=== PATIENT | male | born 1950 | race Caucasian/White ===

== ENCOUNTER 2020-04-21 09:45 | Inpatient (IN) ==
[2020-04-21] MEDS ORDERED: ALBUTEROL NEB SOLN 5 MG/ML 20 ML/BOTTLE CONT NEB STA (10:42)
[2020-04-21] MEDS ORDERED: methylPREDNISolone SOD SUC 125 MG/2 ML VIAL IV STA (10:42)
[2020-04-21 10:54] LABS: Alanine Aminotransferase 15 U/L (16-61); Albumin 2.1 G/DL (3.4-5.0); Alkaline Phosphatase 145 U/L (45-117); Aspartate Amino Transferase 21 U/L (0-37); Bilirubin,Total < 0.39 MG/DL (0.2-1.0); Blood Urea Nitrogen 26 MG/DL (7-18); Calcium 8.4 MG/DL (8.5-10.1); Estimated Glom Filtration Rate 62 ML/MIN; Glucose 200 MG/DL (74-106); Osmolality,Calculated 278.2 MOS/KG (273-304); Total Protein 8.2 G/DL (6.4-8.3)
[2020-04-21 11:32] LABS: Ferritin 161.4 ng/ml (26-388)
[2020-04-21 11:48] LABS: Basophils % 0.1 % (0.0-0.8); Eosinophils % 0.1 % (0.00-10.9); Hematocrit 32.9 VOL% (42.0-52.0); Immature Granulocytes % 0.5 %; Immature Granulocytes Absolute 0.08 #; Lymphocytes # 0.9 10*3/uL (1.4-4.0); Lymphocytes % 5.4 % (21.2-54.2); Mean Corpuscular HGB Conc 29.5 GM/DL (32-36); Mean Corpuscular Volume 70.9 FL (87-102); Mean Platelet Volume 9.4 FL (9.6-12.0); Monocytes % 11.9 % (1.7-12.7); Platelet Count 357 T/CUMM (130-400); Red Blood Count 4.64 MC/CUMM (3.8-5.5); Red Cell Distribution Width 18.8 % (9.3-17.3); White Blood Count 16.8 T/CUMM (4-12)
[2020-04-21 11:49] LABS: Hemoglobin 9.7 GM/DL (14.0-18.0)
[2020-04-21] MEDS ORDERED: LEVOFLOXACIN INJ 500 MG in PREMIX 1 EACH IV STA (13:11)
[2020-04-21] MEDS ORDERED: SODIUM CHLORIDE 0.9% 1,000 ML IV STA (13:23)
[2020-04-21] MEDS ORDERED: GLUCAGON 1 MG VIAL IM PRN ×3 (13:50→15:27)
[2020-04-21] MEDS ORDERED: DEXTROSE 50% 25 GM/50 ML VIAL IV PRN ×4 (13:50→15:30)
[2020-04-21] MEDS ORDERED: SIMETHICONE CHEW 125 MG TABLET PO PRN (13:56)
[2020-04-21] MEDS ORDERED: ACETAMINOPHEN 325 MG TABLET PO PRN (14:00)
[2020-04-21] MEDS ORDERED: ONDANSETRON 4 MG/2 ML VIAL IV PRN (14:00)
[2020-04-21] MEDS ORDERED: ALUMINUM/MAGNES/SIMETH MAX STR 30 ML UDCUP PO PRN (14:00)
[2020-04-21] MEDS ORDERED: ENOXAPARIN 40 MG/0.4 ML SYRINGE SUBCUT SCH (14:00)
[2020-04-21] MEDS ORDERED: SODIUM CHLORIDE 0.9% 2,350 ML IV ONE (14:51)
[2020-04-21] MEDS: ALBUTEROL/IPRATROPIUM 3 ML NEB RESP TX SCH ×2 (15:12→19:15)
[2020-04-21] MEDS ORDERED: HYDROcodone/HOMATROPINE 5 ML UDCUP PO PRN (15:15)
[2020-04-21] MEDS ORDERED: MEPOLIZUMAB 100 MG SUBCUT SCH (15:15)
[2020-04-21] MEDS ORDERED: BUDESONIDE/FORMOTEROL 160-4.5 INHALER 6 GM INH PRN (15:15)
[2020-04-21] MEDS ORDERED: FLUOROMETHOLONE 0.1% OPH SUSP 5 ML BOTTLE BOTH EYES PRN (15:15)
[2020-04-21] MEDS ORDERED: traMADol 50 MG TABLET PO PRN (15:15)
[2020-04-21] MEDS ORDERED: MECLIZINE 12.5 MG TABLET PO PRN (15:15)
[2020-04-21] MEDS ORDERED: ENOXAPARIN 40 MG/0.4 ML SYRINGE SUBCUT ONE (15:15)
[2020-04-21] MEDS ORDERED: hydrALAZINE 20 MG/1 ML VIAL IV PRN (15:30)
[2020-04-21] MEDS ORDERED: diphenhydrAMINE CAP 25 MG CAPSULE PO PRN (15:30)
[2020-04-21] MEDS ORDERED: guaiFENesin/DM ER 600-30 MG TABLET PO PRN (15:30)
[2020-04-21] MEDS ORDERED: LACTULOSE 20 GM/30 ML UDCUP PO PRN (15:30)
[2020-04-21] MEDS ORDERED: MORPHINE 4 MG/1 ML VIAL IV PRN (15:30)
[2020-04-21] MEDS ORDERED: BISACODYL 5 MG TABLET PO PRN (15:30)
[2020-04-21] MEDS: PANTOPRAZOLE 40 MG TABLET PO SCH (15:54)
[2020-04-21] MEDS: AZITHROMYCIN INJ 500 MG in SODIUM CHLORIDE 0.9% 250 ML IV SCH (15:55)
[2020-04-21 16:22] LABS: ABG Base Excess 0.1 MMOL/L (-2.5-2.5); ABG HCO3 24.3 MMOL/L (20-26); ABG Oxygen Saturation 83.1 % (95-100); ABG PCO2 53.4 MM HG (35-48); ABG PH 7.311 (7.35-7.45); ABG PO2 55.7 MM HG (80-95); ABG TCO2 25.1 MMOL/L (23-27)
[2020-04-21 16:52] LABS: Troponin I < 0.015 NG/ML (0.00-0.045)
[2020-04-21] MEDS: INSULIN LISPRO 100 UNIT/ML SUBCUT SCH (17:51)
[2020-04-21] MEDS: INSULIN REGULAR 100 UNIT/ML SUBCUT SCH ×3 (17:53→23:01)
[2020-04-21] MEDS: PIPERACILLIN/TAZOBACTAM 3,375 MG in SODIUM CHLORIDE 0.9% 100 ML IV SCH (17:54)
[2020-04-21] MEDS: methylPREDNISolone SOD SUC 125 MG/2 ML VIAL IV SCH (18:21)
[2020-04-21] MEDS: DORNASE ALFA 2.5 MG/2.5 ML VIAL RESP TX SCH (19:15)
[2020-04-21] MEDS: SODIUM CHLORIDE 0.9% 1,000 ML IV SCH (19:45)
[2020-04-21 20:38] LABS: Troponin I < 0.015 NG/ML (0.00-0.045)
[2020-04-21] MEDS: GABAPENTIN 100 MG CAPSULE PO SCH (20:47)
[2020-04-21] MEDS: QUEtiapine 25 MG TABLET PO SCH (20:47)
[2020-04-21] MEDS: TAMSULOSIN 0.4 MG CAPSULE PO SCH (20:47)
[2020-04-21] MEDS: DULoxetine 30 MG CAPSULE PO SCH (20:47)
[2020-04-21] MEDS: BENZONATATE 100 MG CAPSULE PO PRN (20:47)
[2020-04-21] MEDS: ROSUVASTATIN 20 MG TABLET PO SCH (20:47)
[2020-04-21] MEDS: INSULIN GLARGINE 100 UNIT/ML SUBCUT SCH (20:49)
[2020-04-21] MEDS: VANCOMYCIN INJ 1,250 MG in SODIUM CHLORIDE 0.9% 250 ML IV SCH (20:51)
[2020-04-21] MEDS ORDERED: methylPREDNISolone SOD SUC 40 MG/1 ML VIAL IV SCH (21:00)
[2020-04-21] MEDS: traZODone 50 MG TABLET PO SCH (21:18)
[2020-04-21] MEDS: FLUTICASONE 50 MCG NASAL SPRAY 16 GM BOTTLE BOTH NARES SCH (22:29)
[2020-04-22] MEDS: ALBUTEROL/IPRATROPIUM 3 ML NEB RESP TX SCH ×7 (00:37→23:50)
[2020-04-22] MEDS: PIPERACILLIN/TAZOBACTAM 3,375 MG in SODIUM CHLORIDE 0.9% 100 ML IV SCH ×3 (00:53→16:47)
[2020-04-22] MEDS: methylPREDNISolone SOD SUC 125 MG/2 ML VIAL IV SCH ×3 (02:43→17:05)
[2020-04-22] MEDS: LEVOTHYROXINE 75 MCG TABLET PO SCH (06:26)
[2020-04-22 06:35] LABS: Basophils % 0.2 % (0.0-0.8); Hemoglobin 8.5 GM/DL (14.0-18.0); Immature Granulocytes % 0.5 %; Immature Granulocytes Absolute 0.05 #; Lymphocytes # 0.4 10*3/uL (1.4-4.0); Lymphocytes % 3.9 % (21.2-54.2); Mean Corpuscular HGB Conc 28.3 GM/DL (32-36); Mean Corpuscular Volume 73.2 FL (87-102); Mean Platelet Volume 9.9 FL (9.6-12.0); Monocytes % 3.4 % (1.7-12.7); Platelet Count 289 T/CUMM (130-400); Red Cell Distribution Width 19.1 % (9.3-17.3); White Blood Count 10.9 T/CUMM (4-12)
[2020-04-22 06:53] LABS: Albumin 1.8 G/DL (3.4-5.0); Bilirubin,Total 0.5 MG/DL (0.2-1.0); Calcium 8.2 MG/DL (8.5-10.1); Osmolality,Calculated 281.7 MOS/KG (273-304); Risk Ratio 2.18; Total Protein 7.4 G/DL (6.4-8.3)
[2020-04-22 06:57] LABS: Free T4 (Free Thyroxine) 1.12 NG/DL (0.76-1.46)
[2020-04-22] MEDS: DORNASE ALFA 2.5 MG/2.5 ML VIAL RESP TX SCH ×2 (07:06→19:44)
[2020-04-22 07:10] LABS: Hypochromasia 1+; Lymphocytes 1 % (20-55); Platelet Estimate Adequate; Segmented Neutrophils 98 % (50-85); Total Cells Counted 100
[2020-04-22 07:11] LABS: Ovalocytes Slight
[2020-04-22] MEDS: INSULIN REGULAR 100 UNIT/ML SUBCUT SCH ×4 (07:54→20:51)
[2020-04-22] MEDS ORDERED: MIDAZOLAM 2 MG/2 ML VIAL ONE (08:44)
[2020-04-22] MEDS: FLUTICASONE 50 MCG NASAL SPRAY 16 GM BOTTLE BOTH NARES SCH ×2 (08:54→20:52)
[2020-04-22] MEDS: INSULIN LISPRO 100 UNIT/ML SUBCUT SCH ×3 (08:54→16:48)
[2020-04-22] MEDS: BENZONATATE 100 MG CAPSULE PO PRN (08:55)
[2020-04-22] MEDS: SODIUM CHLORIDE 0.9% 1,000 ML IV SCH (08:55)
[2020-04-22] MEDS ORDERED: ASPIRIN CHEW 81 MG TABLET PO ONE (09:00)
[2020-04-22] MEDS ORDERED: FLUTICASONE 50 MCG NASAL SPRAY 16 GM BOTTLE BOTH NARES SCH (09:00)
[2020-04-22] MEDS ORDERED: LIDOCAINE 2% 20 ML VIAL RESP TX ONE (09:00)
[2020-04-22] MEDS ORDERED: LIDOCAINE 2% VISCOUS 100 ML BOTTLE SWISH/SWAL ONE (09:00)
[2020-04-22] MEDS ORDERED: LIDOCAINE 1% 20 ML VIAL MISC INJ ONE (09:05)
[2020-04-22] MEDS ORDERED: MIDAZOLAM 2 MG/2 ML VIAL IV ONE (09:15)
[2020-04-22 09:22] LABS: % Iron Saturation 5.8 % (18-50)
[2020-04-22] MEDS: AZITHROMYCIN INJ 500 MG in SODIUM CHLORIDE 0.9% 250 ML IV SCH (10:11)
[2020-04-22] MEDS ORDERED: IRON SUCROSE 300 MG in SODIUM CHLORIDE 0.9% 100 ML IV ONE (11:00)
[2020-04-22] MEDS: VANCOMYCIN INJ 1,250 MG in SODIUM CHLORIDE 0.9% 250 ML IV SCH ×2 (11:57→20:50)
[2020-04-22] MEDS: FINASTERIDE 5 MG TABLET PO SCH (11:58)
[2020-04-22] MEDS: LOSARTAN 50 MG TABLET PO SCH (11:59)
[2020-04-22] MEDS: MELOXICAM 7.5 MG TABLET PO SCH (11:59)
[2020-04-22] MEDS: THEOPHYLLINE ER (24 HR) 400 MG TABLET PO SCH (11:59)
[2020-04-22] MEDS: DULoxetine 30 MG CAPSULE PO SCH ×3 (11:59→20:52)
[2020-04-22] MEDS: ISOSORBIDE MONONITRATE 60 MG TABLET PO SCH (11:59)
[2020-04-22] MEDS: TAMSULOSIN 0.4 MG CAPSULE PO SCH ×2 (11:59→20:52)
[2020-04-22] MEDS: GABAPENTIN 100 MG CAPSULE PO SCH ×3 (12:00→20:51)
[2020-04-22] MEDS: EMPAGLIFLOZIN LINAGLIPTIN PO SCH (12:00)
[2020-04-22] MEDS: amLODIPine 5 MG TABLET PO SCH (12:00)
[2020-04-22] MEDS: LORATADINE 10 MG TABLET PO SCH (12:01)
[2020-04-22] MEDS: PANTOPRAZOLE 40 MG TABLET PO SCH (12:01)
[2020-04-22] MEDS: INSULIN GLARGINE 100 UNIT/ML SUBCUT SCH (20:51)
[2020-04-22] MEDS: QUEtiapine 25 MG TABLET PO SCH (20:52)
[2020-04-22] MEDS: ROSUVASTATIN 20 MG TABLET PO SCH (20:52)
[2020-04-22] MEDS: traZODone 50 MG TABLET PO SCH (20:55)
[2020-04-23] MEDS: PIPERACILLIN/TAZOBACTAM 3,375 MG in SODIUM CHLORIDE 0.9% 100 ML IV SCH ×4 (00:13→23:47)
[2020-04-23] MEDS: INSULIN REGULAR 100 UNIT/ML SUBCUT SCH ×5 (00:48→20:32)
[2020-04-23] MEDS: ALBUTEROL/IPRATROPIUM 3 ML NEB RESP TX SCH ×6 (02:00→23:00)
[2020-04-23] MEDS: methylPREDNISolone SOD SUC 125 MG/2 ML VIAL IV SCH ×3 (02:53→17:00)
[2020-04-23] MEDS: LEVOTHYROXINE 75 MCG TABLET PO SCH (06:22)
[2020-04-23 06:27] LABS: Albumin 1.8 G/DL (3.4-5.0); Bilirubin,Total 0.5 MG/DL (0.2-1.0); Calcium 8.3 MG/DL (8.5-10.1); Osmolality,Calculated 289.7 MOS/KG (273-304)
[2020-04-23 06:28] LABS: Ferritin 201.1 ng/ml (26-388)
[2020-04-23 06:43] LABS: Basophils % 0.2 % (0.0-0.8); Hematocrit 27.7 VOL% (42.0-52.0); Hemoglobin 7.7 GM/DL (14.0-18.0); Immature Granulocytes % 1.6 %; Immature Granulocytes Absolute 0.27 #; Lymphocytes # 0.3 10*3/uL (1.4-4.0); Lymphocytes % 1.7 % (21.2-54.2); Mean Corpuscular HGB Conc 27.8 GM/DL (32-36); Mean Corpuscular Volume 74.3 FL (87-102); Mean Platelet Volume 9.9 FL (9.6-12.0); Monocytes % 5.1 % (1.7-12.7); NRBC # 0.04 10*3/uL; Neutrophils % 91.4 % (38.7-73.9); Platelet Count 231 T/CUMM (130-400); Red Blood Count 3.73 MC/CUMM (3.8-5.5); Red Cell Distribution Width 19.3 % (9.3-17.3); White Blood Count 16.8 T/CUMM (4-12)
[2020-04-23] MEDS ORDERED: SODIUM CHLORIDE 0.9% 1,000 ML IV PRN (06:47)
[2020-04-23 07:25] LABS: Band Neutrophils 6 % (0-10); Lymphocytes 3 % (20-55); Segmented Neutrophils 87 % (50-85); Total Cells Counted 100
[2020-04-23 07:26] LABS: Hypochromasia 2+; Microcytosis 1+; Ovalocytes Few
[2020-04-23 07:27] LABS: Platelet Estimate Normal
[2020-04-23] MEDS ORDERED: FUROSEMIDE 20 MG/2 ML VIAL IV ONE (08:01)
[2020-04-23] MEDS: DORNASE ALFA 2.5 MG/2.5 ML VIAL RESP TX SCH ×2 (08:13→19:10)
[2020-04-23] MEDS: AZITHROMYCIN INJ 500 MG in SODIUM CHLORIDE 0.9% 250 ML IV SCH (09:00)
[2020-04-23] MEDS: ENOXAPARIN 40 MG/0.4 ML SYRINGE SUBCUT SCH ×2 (09:01→20:31)
[2020-04-23] MEDS: THEOPHYLLINE ER (24 HR) 400 MG TABLET PO SCH (09:02)
[2020-04-23] MEDS: GABAPENTIN 100 MG CAPSULE PO SCH ×3 (09:02→20:32)
[2020-04-23] MEDS: INSULIN LISPRO 100 UNIT/ML SUBCUT SCH ×3 (09:02→17:00)
[2020-04-23] MEDS: ISOSORBIDE MONONITRATE 60 MG TABLET PO SCH (09:03)
[2020-04-23] MEDS: FINASTERIDE 5 MG TABLET PO SCH (09:03)
[2020-04-23] MEDS: PANTOPRAZOLE 40 MG TABLET PO SCH (09:03)
[2020-04-23] MEDS: LOSARTAN 50 MG TABLET PO SCH (09:03)
[2020-04-23] MEDS: LORATADINE 10 MG TABLET PO SCH (09:03)
[2020-04-23] MEDS: MELOXICAM 7.5 MG TABLET PO SCH (09:03)
[2020-04-23] MEDS: DULoxetine 30 MG CAPSULE PO SCH ×3 (09:03→20:32)
[2020-04-23] MEDS: amLODIPine 5 MG TABLET PO SCH (09:04)
[2020-04-23] MEDS: TAMSULOSIN 0.4 MG CAPSULE PO SCH ×2 (09:04→20:32)
[2020-04-23] MEDS: EMPAGLIFLOZIN LINAGLIPTIN PO SCH (09:04)
[2020-04-23] MEDS: FERROUS SULFATE 325 MG TABLET PO SCH ×3 (09:04→17:00)
[2020-04-23] MEDS: SODIUM CHLORIDE 0.9% 1,000 ML IV SCH ×2 (09:04→13:14)
[2020-04-23] MEDS: FLUTICASONE 50 MCG NASAL SPRAY 16 GM BOTTLE BOTH NARES SCH ×2 (09:04→20:33)
[2020-04-23] MEDS ORDERED: FUROSEMIDE 40 MG/4 ML VIAL ONE (14:08)
[2020-04-23] MEDS: INSULIN GLARGINE 100 UNIT/ML SUBCUT SCH (20:31)
[2020-04-23] MEDS: traZODone 50 MG TABLET PO SCH (20:32)
[2020-04-23] MEDS: QUEtiapine 25 MG TABLET PO SCH (20:32)
[2020-04-23] MEDS: guaiFENesin/DM ER 600-30 MG TABLET PO SCH (20:32)
[2020-04-23] MEDS: ROSUVASTATIN 20 MG TABLET PO SCH (20:32)
[2020-04-24] MEDS: methylPREDNISolone SOD SUC 125 MG/2 ML VIAL IV SCH ×3 (02:55→17:00)
[2020-04-24] MEDS: ALBUTEROL/IPRATROPIUM 3 ML NEB RESP TX SCH ×5 (03:00→19:25)
[2020-04-24] MEDS: LEVOTHYROXINE 75 MCG TABLET PO SCH (06:10)
[2020-04-24 06:16] LABS: Basophils % 0.1 % (0.0-0.8); Immature Granulocytes Absolute 0.44 #; Lymphocytes # 0.4 10*3/uL (1.4-4.0); Lymphocytes % 2.6 % (21.2-54.2); Mean Corpuscular HGB Conc 28.1 GM/DL (32-36); Mean Corpuscular Volume 77.6 FL (87-102); Mean Platelet Volume 9.5 FL (9.6-12.0); Monocytes % 5.8 % (1.7-12.7); NRBC # 0.04 10*3/uL; Neutrophils % 88.5 % (38.7-73.9); Platelet Count 209 T/CUMM (130-400); Red Blood Count 4.64 MC/CUMM (3.8-5.5); Red Cell Distribution Width 20.1 % (9.3-17.3); White Blood Count 14.8 T/CUMM (4-12)
[2020-04-24 06:53] LABS: Hemoglobin 10.2 GM/DL (14.0-18.0)
[2020-04-24 06:54] LABS: Band Neutrophils 3 % (0-10); Hypochromasia 2+; Lymphocytes 2 % (20-55); Segmented Neutrophils 91 % (50-85); Total Cells Counted 100
[2020-04-24 06:55] LABS: Microcytosis 1+; Ovalocytes Slight; Target Cells Slight
[2020-04-24 06:56] LABS: Ferritin 371.1 ng/ml (26-388)
[2020-04-24 07:00] LABS: Alanine Aminotransferase 18 U/L (16-61); Albumin 2.1 G/DL (3.4-5.0); Alkaline Phosphatase 112 U/L (45-117); Aspartate Amino Transferase 19 U/L (0-37); Bilirubin,Total < 0.39 MG/DL (0.2-1.0); Blood Urea Nitrogen 42 MG/DL (7-18); Calcium 8.3 MG/DL (8.5-10.1); Estimated Glom Filtration Rate 66 ML/MIN; Glucose 77 MG/DL (74-106); Osmolality,Calculated 286.5 MOS/KG (273-304); Total Protein 7.4 G/DL (6.4-8.3)
[2020-04-24] MEDS: SODIUM CHLORIDE 0.9% 1,000 ML IV SCH (08:20)
[2020-04-24] MEDS: INSULIN REGULAR 100 UNIT/ML SUBCUT SCH ×4 (08:21→21:33)
[2020-04-24] MEDS: DORNASE ALFA 2.5 MG/2.5 ML VIAL RESP TX SCH ×2 (08:28→19:35)
[2020-04-24] MEDS: AZITHROMYCIN INJ 500 MG in SODIUM CHLORIDE 0.9% 250 ML IV SCH (09:17)
[2020-04-24] MEDS: PIPERACILLIN/TAZOBACTAM 3,375 MG in SODIUM CHLORIDE 0.9% 100 ML IV SCH ×3 (09:17→23:05)
[2020-04-24] MEDS: INSULIN LISPRO 100 UNIT/ML SUBCUT SCH ×3 (09:18→16:59)
[2020-04-24] MEDS: guaiFENesin/DM ER 600-30 MG TABLET PO SCH ×2 (09:19→21:34)
[2020-04-24] MEDS: ENOXAPARIN 40 MG/0.4 ML SYRINGE SUBCUT SCH ×2 (09:19→21:33)
[2020-04-24] MEDS: MELOXICAM 7.5 MG TABLET PO SCH (09:20)
[2020-04-24] MEDS: THEOPHYLLINE ER (24 HR) 400 MG TABLET PO SCH (09:20)
[2020-04-24] MEDS: LOSARTAN 50 MG TABLET PO SCH (09:20)
[2020-04-24] MEDS: ISOSORBIDE MONONITRATE 60 MG TABLET PO SCH (09:21)
[2020-04-24] MEDS: LORATADINE 10 MG TABLET PO SCH (09:21)
[2020-04-24] MEDS: PANTOPRAZOLE 40 MG TABLET PO SCH (09:21)
[2020-04-24] MEDS: DULoxetine 30 MG CAPSULE PO SCH ×3 (09:21→21:34)
[2020-04-24] MEDS: FERROUS SULFATE 325 MG TABLET PO SCH ×3 (09:21→16:59)
[2020-04-24] MEDS: amLODIPine 5 MG TABLET PO SCH (09:21)
[2020-04-24] MEDS: TAMSULOSIN 0.4 MG CAPSULE PO SCH ×2 (09:21→21:34)
[2020-04-24] MEDS: FINASTERIDE 5 MG TABLET PO SCH (09:21)
[2020-04-24] MEDS: FLUTICASONE 50 MCG NASAL SPRAY 16 GM BOTTLE BOTH NARES SCH ×2 (09:22→23:05)
[2020-04-24] MEDS: EMPAGLIFLOZIN LINAGLIPTIN PO SCH (09:22)
[2020-04-24] MEDS: GABAPENTIN 100 MG CAPSULE PO SCH ×3 (09:35→21:34)
[2020-04-24] MEDS: INSULIN GLARGINE 100 UNIT/ML SUBCUT SCH (21:33)
[2020-04-24] MEDS: DOCUSATE SODIUM 100 MG CAPSULE PO PRN (21:34)
[2020-04-24] MEDS: ROSUVASTATIN 20 MG TABLET PO SCH (21:34)
[2020-04-24] MEDS: QUEtiapine 25 MG TABLET PO SCH (21:34)
[2020-04-24] MEDS: traZODone 50 MG TABLET PO SCH (23:05)
[2020-04-25] MEDS: methylPREDNISolone SOD SUC 125 MG/2 ML VIAL IV SCH ×3 (02:51→21:08)
[2020-04-25] MEDS: ALBUTEROL/IPRATROPIUM 3 ML NEB RESP TX SCH ×6 (03:50→19:42)
[2020-04-25] MEDS: LEVOTHYROXINE 75 MCG TABLET PO SCH (06:41)
[2020-04-25 06:51] LABS: Albumin 1.8 G/DL (3.4-5.0); Bilirubin,Total 1.1 MG/DL (0.2-1.0); Calcium 7.9 MG/DL (8.5-10.1); Total Protein 6.9 G/DL (6.4-8.3)
[2020-04-25 06:53] LABS: Ferritin 369.1 ng/ml (26-388)
[2020-04-25 07:15] LABS: Basophils % 0.2 % (0.0-0.8); Hemoglobin 9.5 GM/DL (14.0-18.0); Immature Granulocytes Absolute 0.26 #; Lymphocytes # 0.3 10*3/uL (1.4-4.0); Lymphocytes % 2.4 % (21.2-54.2); Mean Corpuscular HGB Conc 28.8 GM/DL (32-36); Mean Corpuscular Volume 77.3 FL (87-102); Mean Platelet Volume 10.2 FL (9.6-12.0); Monocytes % 4.3 % (1.7-12.7); NRBC # 0.02 10*3/uL; Neutrophils % 91.1 % (38.7-73.9); Platelet Count 165 T/CUMM (130-400); Red Blood Count 4.27 MC/CUMM (3.8-5.5); Red Cell Distribution Width 20.5 % (9.3-17.3); White Blood Count 13.2 T/CUMM (4-12)
[2020-04-25 07:34] LABS: Anisocytosis 1+; Band Neutrophils 16 % (0-10); Basophilic Stippling Slight; Lymphocytes 4 % (20-55); Metamyelocytes 2 %; Nucleated Red Blood Cells 1 (0-5); Platelet Estimate Normal; Segmented Neutrophils 75 % (50-85); Total Cells Counted 100
[2020-04-25] MEDS: DORNASE ALFA 2.5 MG/2.5 ML VIAL RESP TX SCH ×2 (07:42→19:48)
[2020-04-25] MEDS: PIPERACILLIN/TAZOBACTAM 3,375 MG in SODIUM CHLORIDE 0.9% 100 ML IV SCH (09:29)
[2020-04-25] MEDS: INSULIN LISPRO 100 UNIT/ML SUBCUT SCH ×3 (09:30→16:35)
[2020-04-25] MEDS: MELOXICAM 7.5 MG TABLET PO SCH (09:31)
[2020-04-25] MEDS: GABAPENTIN 100 MG CAPSULE PO SCH ×3 (09:31→21:08)
[2020-04-25] MEDS: FINASTERIDE 5 MG TABLET PO SCH (09:31)
[2020-04-25] MEDS: ENOXAPARIN 40 MG/0.4 ML SYRINGE SUBCUT SCH ×2 (09:31→21:07)
[2020-04-25] MEDS: ISOSORBIDE MONONITRATE 60 MG TABLET PO SCH (09:32)
[2020-04-25] MEDS: PANTOPRAZOLE 40 MG TABLET PO SCH (09:32)
[2020-04-25] MEDS: DULoxetine 30 MG CAPSULE PO SCH ×3 (09:32→21:08)
[2020-04-25] MEDS: TAMSULOSIN 0.4 MG CAPSULE PO SCH ×2 (09:32→21:08)
[2020-04-25] MEDS: LOSARTAN 50 MG TABLET PO SCH (09:32)
[2020-04-25] MEDS: amLODIPine 5 MG TABLET PO SCH (09:32)
[2020-04-25] MEDS: guaiFENesin/DM ER 600-30 MG TABLET PO SCH ×2 (09:32→21:08)
[2020-04-25] MEDS: LORATADINE 10 MG TABLET PO SCH (09:33)
[2020-04-25] MEDS: FERROUS SULFATE 325 MG TABLET PO SCH ×3 (09:33→16:35)
[2020-04-25] MEDS: THEOPHYLLINE ER (24 HR) 400 MG TABLET PO SCH (09:33)
[2020-04-25] MEDS: DOCUSATE SODIUM 100 MG CAPSULE PO PRN (09:57)
[2020-04-25] MEDS: FLUTICASONE 50 MCG NASAL SPRAY 16 GM BOTTLE BOTH NARES SCH ×2 (09:57→21:09)
[2020-04-25] MEDS ORDERED: methylPREDNISolone SOD SUC 125 MG/2 ML VIAL IV SCH (10:00)
[2020-04-25] MEDS: AZITHROMYCIN INJ 500 MG in SODIUM CHLORIDE 0.9% 250 ML IV SCH (10:17)
[2020-04-25] MEDS: INSULIN REGULAR 100 UNIT/ML SUBCUT SCH ×4 (10:22→21:09)
[2020-04-25] MEDS: LEVOFLOXACIN INJ 250 MG in PREMIX 1 EACH IV SCH (10:24)
[2020-04-25] MEDS ORDERED: cefTAZidime 1,000 MG in SYRINGE 1 EACH IV SCH (10:30)
[2020-04-25] MEDS ORDERED: BISACODYL 5 MG TABLET PO ONE (10:36)
[2020-04-25] MEDS: EMPAGLIFLOZIN LINAGLIPTIN PO SCH (10:37)
[2020-04-25] MEDS: QUEtiapine 25 MG TABLET PO SCH (21:08)
[2020-04-25] MEDS: traZODone 50 MG TABLET PO SCH (21:08)
[2020-04-25] MEDS: INSULIN GLARGINE 100 UNIT/ML SUBCUT SCH (21:10)
[2020-04-25] MEDS: ROSUVASTATIN 20 MG TABLET PO SCH (21:12)
[2020-04-26 00:01] LABS: Specimen Source SPUTUM
[2020-04-26] MEDS: ALBUTEROL/IPRATROPIUM 3 ML NEB RESP TX SCH ×7 (00:10→23:10)
[2020-04-26 04:57] LABS: Alanine Aminotransferase 16 U/L (16-61); Alkaline Phosphatase 97 U/L (45-117); Aspartate Amino Transferase 11 U/L (0-37); Bilirubin,Total < 0.39 MG/DL (0.2-1.0); Blood Urea Nitrogen 42 MG/DL (7-18); Calcium 8.4 MG/DL (8.5-10.1); Estimated Glom Filtration Rate 72 ML/MIN; Ferritin 360.1 ng/ml (26-388); Glucose 114 MG/DL (74-106); Osmolality,Calculated 281.1 MOS/KG (273-304); Total Protein 7.3 G/DL (6.4-8.3)
[2020-04-26] MEDS: LEVOTHYROXINE 75 MCG TABLET PO SCH (05:55)
[2020-04-26 07:44] LABS: Basophils % 0.2 % (0.0-0.8); Hematocrit 36.2 VOL% (42.0-52.0); Hemoglobin 10.4 GM/DL (14.0-18.0); Immature Granulocytes % 1.1 %; Immature Granulocytes Absolute 0.25 #; Lymphocytes # 0.3 10*3/uL (1.4-4.0); Lymphocytes % 1.1 % (21.2-54.2); Mean Corpuscular HGB Conc 28.7 GM/DL (32-36); Mean Corpuscular Volume 77.4 FL (87-102); Mean Platelet Volume 9.9 FL (9.6-12.0); Monocytes % 4.1 % (1.7-12.7); NRBC # 0.03 10*3/uL; Neutrophils % 93.5 % (38.7-73.9); Platelet Count 153 T/CUMM (130-400); Red Blood Count 4.68 MC/CUMM (3.8-5.5); Red Cell Distribution Width 21.2 % (9.3-17.3); White Blood Count 21.9 T/CUMM (4-12)
[2020-04-26] MEDS: DORNASE ALFA 2.5 MG/2.5 ML VIAL RESP TX SCH ×2 (08:12→18:40)
[2020-04-26 08:27] LABS: Band Neutrophils 16 % (0-10); Lymphocytes 3 % (20-55); Platelet Estimate Normal; Segmented Neutrophils 79 % (50-85); Total Cells Counted 100
[2020-04-26 08:28] LABS: Anisocytosis 2+; Ovalocytes Few; Tear Drop Cells Few
[2020-04-26 08:29] LABS: Giant Platelets Few
[2020-04-26] MEDS: INSULIN REGULAR 100 UNIT/ML SUBCUT SCH ×4 (08:31→21:39)
[2020-04-26] MEDS: LEVOFLOXACIN INJ 250 MG in PREMIX 1 EACH IV SCH (09:35)
[2020-04-26] MEDS: methylPREDNISolone SOD SUC 125 MG/2 ML VIAL IV SCH ×2 (09:35→20:57)
[2020-04-26] MEDS: ENOXAPARIN 40 MG/0.4 ML SYRINGE SUBCUT SCH (09:36)
[2020-04-26] MEDS: LOSARTAN 50 MG TABLET PO SCH (09:37)
[2020-04-26] MEDS: amLODIPine 5 MG TABLET PO SCH (09:37)
[2020-04-26] MEDS: PANTOPRAZOLE 40 MG TABLET PO SCH (09:37)
[2020-04-26] MEDS: THEOPHYLLINE ER (24 HR) 400 MG TABLET PO SCH (09:37)
[2020-04-26] MEDS: guaiFENesin/DM ER 600-30 MG TABLET PO SCH ×2 (09:37→21:02)
[2020-04-26] MEDS: DULoxetine 30 MG CAPSULE PO SCH ×3 (09:37→21:02)
[2020-04-26] MEDS: FERROUS SULFATE 325 MG TABLET PO SCH ×3 (09:37→18:03)
[2020-04-26] MEDS: ISOSORBIDE MONONITRATE 60 MG TABLET PO SCH (09:37)
[2020-04-26] MEDS: TAMSULOSIN 0.4 MG CAPSULE PO SCH ×2 (09:37→21:02)
[2020-04-26] MEDS: FINASTERIDE 5 MG TABLET PO SCH (09:37)
[2020-04-26] MEDS: FLUTICASONE 50 MCG NASAL SPRAY 16 GM BOTTLE BOTH NARES SCH ×2 (09:38→21:38)
[2020-04-26] MEDS: LORATADINE 10 MG TABLET PO SCH (09:38)
[2020-04-26] MEDS: GABAPENTIN 100 MG CAPSULE PO SCH ×3 (09:38→21:02)
[2020-04-26] MEDS: POLYETHYLENE GLYCOL POWDER 17 GM PACK PO SCH (09:38)
[2020-04-26] MEDS: INSULIN LISPRO 100 UNIT/ML SUBCUT SCH (09:52)
[2020-04-26] MEDS: ROSUVASTATIN 20 MG TABLET PO SCH (21:02)
[2020-04-26] MEDS: INSULIN GLARGINE 100 UNIT/ML SUBCUT SCH (21:39)
[2020-04-27] MEDS: ALBUTEROL/IPRATROPIUM 3 ML NEB RESP TX SCH ×5 (03:10→19:45)
[2020-04-27] MEDS: LEVOTHYROXINE 75 MCG TABLET PO SCH (05:11)
[2020-04-27 06:10] LABS: INR 1.1; PT Patient Result 12.1 SECS (9.8-11.9); Partial Thromboplastin Time 35.3 SECS (23.9-33.8)
[2020-04-27 06:33] LABS: Ferritin 367.6 ng/ml (26-388)
[2020-04-27 06:34] LABS: Albumin 1.9 G/DL (3.4-5.0); Bilirubin,Total 0.4 MG/DL (0.2-1.0); Calcium 8.4 MG/DL (8.5-10.1)
[2020-04-27 06:49] LABS: Basophils % 0.1 % (0.0-0.8); Hematocrit 36.9 VOL% (42.0-52.0); Hemoglobin 10.3 GM/DL (14.0-18.0); Immature Granulocytes % 1.3 %; Immature Granulocytes Absolute 0.34 #; Lymphocytes # 0.2 10*3/uL (1.4-4.0); Lymphocytes % 0.6 % (21.2-54.2); Mean Corpuscular HGB Conc 27.9 GM/DL (32-36); Mean Corpuscular Volume 80.2 FL (87-102); Mean Platelet Volume 9.3 FL (9.6-12.0); Monocytes % 3.3 % (1.7-12.7); NRBC # 0.02 10*3/uL; Neutrophils % 94.7 % (38.7-73.9); Platelet Count 135 T/CUMM (130-400); Red Cell Distribution Width 21.3 % (9.3-17.3); White Blood Count 25.2 T/CUMM (4-12)
[2020-04-27 06:55] LABS: Band Neutrophils 1 % (0-10); Hypochromasia 1+; Lymphocytes 1 % (20-55); Microcytosis Slight; Platelet Estimate Adequate; Segmented Neutrophils 96 % (50-85); Total Cells Counted 100
[2020-04-27] MEDS: DORNASE ALFA 2.5 MG/2.5 ML VIAL RESP TX SCH ×2 (07:23→19:45)
[2020-04-27] MEDS ORDERED: BENZONATATE 100 MG CAPSULE PO ONE (08:00)
[2020-04-27 08:06] LABS: ABG Base Excess 1.2 MMOL/L (-2.5-2.5); ABG HCO3 25.4 MMOL/L (20-26); ABG Oxygen Saturation 90.5 % (95-100); ABG PO2 66.2 MM HG (80-95)
[2020-04-27 08:09] LABS: ABG PCO2 84.1 MM HG (35-48); ABG PH 7.189 (7.35-7.45)
[2020-04-27] MEDS ORDERED: LIDOCAINE 1% 20 ML VIAL MISC INJ ONE (08:30)
[2020-04-27] MEDS ORDERED: LIDOCAINE 2% 20 ML VIAL RESP TX ONE (08:30)
[2020-04-27] MEDS ORDERED: LIDOCAINE 2% VISCOUS 100 ML BOTTLE SWISH/SPIT ONE (08:30)
[2020-04-27] MEDS ORDERED: MIDAZOLAM 2 MG/2 ML VIAL IV ONE (09:00)
[2020-04-27] MEDS: FERROUS SULFATE 325 MG TABLET PO SCH ×3 (09:23→16:33)
[2020-04-27] MEDS: INSULIN REGULAR 100 UNIT/ML SUBCUT SCH ×4 (09:23→20:42)
[2020-04-27] MEDS: DULoxetine 30 MG CAPSULE PO SCH (09:24)
[2020-04-27] MEDS: LORATADINE 10 MG TABLET PO SCH (09:24)
[2020-04-27] MEDS: FINASTERIDE 5 MG TABLET PO SCH (09:25)
[2020-04-27] MEDS: FLUTICASONE 50 MCG NASAL SPRAY 16 GM BOTTLE BOTH NARES SCH ×2 (09:25→20:41)
[2020-04-27] MEDS: GABAPENTIN 100 MG CAPSULE PO SCH (09:25)
[2020-04-27] MEDS: POLYETHYLENE GLYCOL POWDER 17 GM PACK PO SCH (09:25)
[2020-04-27] MEDS: amLODIPine 5 MG TABLET PO SCH (09:25)
[2020-04-27] MEDS: TAMSULOSIN 0.4 MG CAPSULE PO SCH ×2 (09:25→20:41)
[2020-04-27] MEDS: guaiFENesin/DM ER 600-30 MG TABLET PO SCH ×2 (09:25→20:42)
[2020-04-27] MEDS: ISOSORBIDE MONONITRATE 60 MG TABLET PO SCH (09:25)
[2020-04-27] MEDS: PANTOPRAZOLE 40 MG TABLET PO SCH (09:26)
[2020-04-27] MEDS: methylPREDNISolone SOD SUC 125 MG/2 ML VIAL IV SCH ×2 (09:26→20:42)
[2020-04-27] MEDS: THEOPHYLLINE ER (24 HR) 400 MG TABLET PO SCH (09:26)
[2020-04-27 10:09] LABS: Allen Test Positive
[2020-04-27 10:11] LABS: ABG Base Excess 1.2 MMOL/L (-2.5-2.5); ABG HCO3 25.1 MMOL/L (20-26); ABG Oxygen Saturation 75.6 % (95-100); ABG PO2 44.7 MM HG (80-95); ABG TCO2 30.1 MMOL/L (23-27)
[2020-04-27 10:13] LABS: ABG PCO2 85.1 MM HG (35-48); ABG PH 7.186 (7.35-7.45)
[2020-04-27] MEDS ORDERED: FUROSEMIDE 40 MG/4 ML VIAL IV ONE (10:44)
[2020-04-27 11:28] LABS: ABG Base Excess 1.4 MMOL/L (-2.5-2.5); ABG HCO3 25.5 MMOL/L (20-26); ABG PO2 56.2 MM HG (80-95); ABG TCO2 30.3 MMOL/L (23-27); Allen Test Positive; Pt O2 Delivery Device BIPAP
[2020-04-27 11:34] LABS: ABG PCO2 85.4 MM HG (35-48); ABG PH 7.187 (7.35-7.45)
[2020-04-27] MEDS: LEVOFLOXACIN INJ 250 MG in PREMIX 1 EACH IV SCH (12:01)
[2020-04-27 16:19] LABS: ABG Base Excess 6.2 MMOL/L (-2.5-2.5); ABG HCO3 29.7 MMOL/L (20-26); ABG Oxygen Saturation 75.6 % (95-100); ABG PH 7.291 (7.35-7.45); ABG PO2 43.3 MM HG (80-95); ABG TCO2 32.4 MMOL/L (23-27)
[2020-04-27 16:25] LABS: ABG PCO2 73.5 MM HG (35-48)
[2020-04-27] MEDS ORDERED: VECURONIUM 10 MG VIAL IV ONE ×2 (16:47→16:53)
[2020-04-27] MEDS ORDERED: ETOMIDATE 20 MG/10 ML VIAL IV ONE ×2 (16:47→16:50)
[2020-04-27] MEDS ORDERED: LIDOCAINE 2% TOP JELLY 20 ML VIAL INTRAURETH ONE (17:40)
[2020-04-27 18:39] LABS: ABG Base Excess 5.2 MMOL/L (-2.5-2.5); ABG HCO3 35.6 MMOL/L (20-26); ABG PO2 120.9 MM HG (80-95); ABG TCO2 38.5 MMOL/L (23-27); Allen Test Positive; Pt O2 Delivery Device Ventilator
[2020-04-27 18:52] LABS: ABG PCO2 93.4 MM HG (35-48); ABG PH 7.199 (7.35-7.45)
[2020-04-27] MEDS: fentaNYL INJ 1,250 MCG in SODIUM CHLORIDE 0.9% 225 ML IV PRN (19:11)
[2020-04-27] MEDS ORDERED: PHENYLEPHRINE DRIP 40 MG/250 ML PREMIX IV ONE (19:24)
[2020-04-27] MEDS: PHENYLEPHRINE DRIP 40 MG/250 ML PREMIX IV PRN (19:39)
[2020-04-27] MEDS: MIDAZOLAM 100 MG in SODIUM CHLORIDE 0.9% 80 ML IV PRN (19:49)
[2020-04-27 20:32] LABS: ABG HCO3 29.9 MMOL/L (20-26); ABG Oxygen Saturation 99.5 % (95-100); ABG PCO2 64.9 MM HG (35-48); ABG PH 7.327 (7.35-7.45); Allen Test Positive; Pt O2 Delivery Device Ventilator
[2020-04-27] MEDS: ROSUVASTATIN 20 MG TABLET PO SCH (20:41)
[2020-04-27] MEDS ORDERED: THEOPHYLLINE ER (24 HR) 400 MG TABLET PO SCH (21:00)
[2020-04-28] MEDS: fentaNYL INJ 1,250 MCG in SODIUM CHLORIDE 0.9% 225 ML IV PRN ×4 (00:32→22:37)
[2020-04-28] MEDS: ALBUTEROL/IPRATROPIUM 3 ML NEB RESP TX SCH ×7 (01:07→23:58)
[2020-04-28 03:18] LABS: ABG Base Excess 4.2 MMOL/L (-2.5-2.5); ABG HCO3 31.9 MMOL/L (20-26); ABG PH 7.337 (7.35-7.45); ABG PO2 104.4 MM HG (80-95); ABG TCO2 33.8 MMOL/L (23-27); Allen Test Positive; Pt O2 Delivery Device Ventilator
[2020-04-28 03:19] LABS: ABG Oxygen Saturation 97.3 % (95-100)
[2020-04-28 05:06] LABS: Basophils # 0.1 10*3/uL (0.0-0.2); Basophils % 0.2 % (0.0-0.8); Hematocrit 35.5 VOL% (42.0-52.0); Hemoglobin 10.1 GM/DL (14.0-18.0); Immature Granulocytes % 0.9 %; Immature Granulocytes Absolute 0.25 #; Lymphocytes # 0.1 10*3/uL (1.4-4.0); Lymphocytes % 0.5 % (21.2-54.2); Mean Corpuscular HGB Conc 28.5 GM/DL (32-36); Mean Corpuscular Volume 77.9 FL (87-102); Neutrophils % 96.4 % (38.7-73.9); Platelet Count 115 T/CUMM (130-400); Red Blood Count 4.56 MC/CUMM (3.8-5.5); White Blood Count 28.6 T/CUMM (4-12)
[2020-04-28 05:15] LABS: Band Neutrophils 5 % (0-10); Hypochromasia 1+; Lymphocytes 2 % (20-55); Nucleated Red Blood Cells 1 (0-5); Platelet Estimate Decreased; Segmented Neutrophils 93 % (50-85); Total Cells Counted 100
[2020-04-28 05:16] LABS: Microcytosis Slight
[2020-04-28 05:26] LABS: Alanine Aminotransferase 14 U/L (16-61); Albumin 1.5 G/DL (3.4-5.0); Alkaline Phosphatase 70 U/L (45-117); Aspartate Amino Transferase 14 U/L (0-37); Bilirubin,Total < 0.39 MG/DL (0.2-1.0); Blood Urea Nitrogen 39 MG/DL (7-18); Estimated Glom Filtration Rate 108 ML/MIN; Glucose 61 MG/DL (74-106); Osmolality,Calculated 281.7 MOS/KG (273-304)
[2020-04-28] MEDS: LEVOTHYROXINE 75 MCG TABLET PO SCH ×2 (06:00→09:57)
[2020-04-28] MEDS: DORNASE ALFA 2.5 MG/2.5 ML VIAL RESP TX SCH ×2 (07:26→19:43)
[2020-04-28] MEDS: ISOSORBIDE MONONITRATE 60 MG TABLET PO SCH ×2 (09:00→09:32)
[2020-04-28] MEDS: LEVOFLOXACIN INJ 250 MG in PREMIX 1 EACH IV SCH (09:28)
[2020-04-28] MEDS: FINASTERIDE 5 MG TABLET PO SCH (09:32)
[2020-04-28] MEDS: LORATADINE 10 MG TABLET PO SCH (09:32)
[2020-04-28] MEDS: guaiFENesin/DM ER 600-30 MG TABLET PO SCH ×2 (09:32→20:06)
[2020-04-28] MEDS: PANTOPRAZOLE 40 MG VIAL IV SCH (09:32)
[2020-04-28] MEDS: TAMSULOSIN 0.4 MG CAPSULE PO SCH ×2 (09:32→20:06)
[2020-04-28] MEDS: FERROUS SULFATE 325 MG TABLET PO SCH ×3 (09:32→16:41)
[2020-04-28] MEDS: POLYETHYLENE GLYCOL POWDER 17 GM PACK PO SCH (09:32)
[2020-04-28] MEDS: FLUTICASONE 50 MCG NASAL SPRAY 16 GM BOTTLE BOTH NARES SCH ×2 (09:32→20:06)
[2020-04-28] MEDS: methylPREDNISolone SOD SUC 125 MG/2 ML VIAL IV SCH ×2 (09:32→21:46)
[2020-04-28] MEDS: ACLIDINIUM BROMIDE INH SCH (10:01)
[2020-04-28] MEDS: THEOPHYLLINE 5.33 MG/ML 30 ML/BOTTLE NG SCH ×3 (11:37→20:05)
[2020-04-28] MEDS ORDERED: INSULIN REGULAR 100 UNIT/ML SUBCUT SCH (12:00)
[2020-04-28] MEDS: INSULIN REGULAR 100 UNIT/ML SUBCUT SCH ×3 (16:26→23:31)
[2020-04-28] MEDS: ROSUVASTATIN 20 MG TABLET PO SCH (20:06)
[2020-04-29] MEDS: THEOPHYLLINE 5.33 MG/ML 30 ML/BOTTLE NG SCH ×4 (01:05→20:51)
[2020-04-29] MEDS: ALBUTEROL/IPRATROPIUM 3 ML NEB RESP TX SCH ×5 (03:25→19:38)
[2020-04-29 03:41] LABS: ABG Base Excess 2.8 MMOL/L (-2.5-2.5); ABG HCO3 29.7 MMOL/L (20-26); ABG PCO2 58.7 MM HG (35-48); ABG PH 7.322 (7.35-7.45); ABG PO2 90.1 MM HG (80-95); ABG TCO2 31.5 MMOL/L (23-27); Allen Test Positive; Pt O2 Delivery Device Ventilator
[2020-04-29 04:40] LABS: Basophils % 0.2 % (0.0-0.8); Hematocrit 32.1 VOL% (42.0-52.0); Hemoglobin 9.4 GM/DL (14.0-18.0); Immature Granulocytes Absolute 0.24 #; Lymphocytes # 0.1 10*3/uL (1.4-4.0); Lymphocytes % 0.5 % (21.2-54.2); Mean Corpuscular HGB Conc 29.3 GM/DL (32-36); Monocytes % 2.6 % (1.7-12.7); Neutrophils % 95.7 % (38.7-73.9); Platelet Count 118 T/CUMM (130-400); Red Blood Count 4.17 MC/CUMM (3.8-5.5); Red Cell Distribution Width 22.4 % (9.3-17.3); White Blood Count 23.3 T/CUMM (4-12)
[2020-04-29 04:52] LABS: Albumin 1.4 G/DL (3.4-5.0); Bilirubin,Total 0.7 MG/DL (0.2-1.0); Calcium 8.2 MG/DL (8.5-10.1); Osmolality,Calculated 290.7 MOS/KG (273-304); Total Protein 5.8 G/DL (6.4-8.3)
[2020-04-29 04:54] LABS: INR 1.3; PT Patient Result 13.7 SECS (9.8-11.9); Partial Thromboplastin Time 39.3 SECS (23.9-33.8)
[2020-04-29 05:13] LABS: Anisocytosis 2+; Band Neutrophils 2 % (0-10); Macrocytosis 2+; Metamyelocytes 1 %; Platelet Estimate Decreased; Segmented Neutrophils 96 % (50-85); Total Cells Counted 100
[2020-04-29 05:14] LABS: Hypochromasia 2+
[2020-04-29] MEDS: fentaNYL INJ 1,250 MCG in SODIUM CHLORIDE 0.9% 225 ML IV PRN ×2 (05:59→17:51)
[2020-04-29] MEDS: LEVOTHYROXINE 75 MCG TABLET PO SCH (06:12)
[2020-04-29] MEDS: INSULIN REGULAR 100 UNIT/ML SUBCUT SCH ×3 (06:12→18:15)
[2020-04-29] MEDS: DORNASE ALFA 2.5 MG/2.5 ML VIAL RESP TX SCH ×2 (07:47→19:45)
[2020-04-29 08:45] VITALS: BP 112/60
[2020-04-29] MEDS: ACLIDINIUM BROMIDE INH SCH (09:14)
[2020-04-29] MEDS: FLUTICASONE 50 MCG NASAL SPRAY 16 GM BOTTLE BOTH NARES SCH ×2 (10:42→21:22)
[2020-04-29] MEDS: FERROUS SULFATE 325 MG TABLET PO SCH ×3 (11:05→18:02)
[2020-04-29] MEDS: POLYETHYLENE GLYCOL POWDER 17 GM PACK PO SCH (11:27)
[2020-04-29] MEDS: ISOSORBIDE MONONITRATE 60 MG TABLET PO SCH (11:29)
[2020-04-29] MEDS: TAMSULOSIN 0.4 MG CAPSULE PO SCH ×2 (11:29→21:22)
[2020-04-29] MEDS: LORATADINE 10 MG TABLET PO SCH (11:29)
[2020-04-29] MEDS: guaiFENesin/DM ER 600-30 MG TABLET PO SCH ×2 (11:30→21:21)
[2020-04-29] MEDS: FINASTERIDE 5 MG TABLET PO SCH (11:30)
[2020-04-29] MEDS: PANTOPRAZOLE 40 MG VIAL IV SCH (11:30)
[2020-04-29] MEDS: methylPREDNISolone SOD SUC 125 MG/2 ML VIAL IV SCH ×2 (11:31→21:25)
[2020-04-29] MEDS: LEVOFLOXACIN INJ 250 MG in PREMIX 1 EACH IV SCH (12:22)
[2020-04-29] MEDS: LEVOFLOXACIN INJ 750 MG in PREMIX 1 EACH IV SCH (12:23)
[2020-04-29] MEDS: MIDAZOLAM 100 MG in SODIUM CHLORIDE 0.9% 80 ML IV PRN (17:51)
[2020-04-29] MEDS: ENOXAPARIN 40 MG/0.4 ML SYRINGE SUBCUT SCH (20:55)
[2020-04-29] MEDS: ROSUVASTATIN 20 MG TABLET PO SCH (21:21)
[2020-04-30] MEDS: ALBUTEROL/IPRATROPIUM 3 ML NEB RESP TX SCH ×7 (00:28→23:15)
[2020-04-30] MEDS: INSULIN REGULAR 100 UNIT/ML SUBCUT SCH ×4 (01:40→18:16)
[2020-04-30] MEDS: fentaNYL INJ 1,250 MCG in SODIUM CHLORIDE 0.9% 225 ML IV PRN ×3 (01:43→18:17)
[2020-04-30] MEDS: dilTIAZem Drip 125 MG/125 ML PREMIX IV SCH (04:31)
[2020-04-30] MEDS: THEOPHYLLINE 5.33 MG/ML 30 ML/BOTTLE NG SCH ×4 (04:34→20:49)
[2020-04-30 04:53] LABS: ABG Base Excess 4.5 MMOL/L (-2.5-2.5); ABG HCO3 31.6 MMOL/L (20-26); ABG Oxygen Saturation 94.9 % (95-100); ABG PH 7.325 (7.35-7.45); ABG PO2 80.6 MM HG (80-95); ABG TCO2 33.5 MMOL/L (23-27); Allen Test Positive; Pt O2 Delivery Device Ventilator
[2020-04-30 05:20] LABS: Immature Granulocytes % 0.7 %; Lymphocytes # 0.1 10*3/uL (1.4-4.0); Lymphocytes % 0.3 % (21.2-54.2)
[2020-04-30 05:49] LABS: Alanine Aminotransferase 14 U/L (16-61); Albumin 1.2 G/DL (3.4-5.0); Alkaline Phosphatase 78 U/L (45-117); Aspartate Amino Transferase 22 U/L (0-37); Bilirubin,Total < 0.39 MG/DL (0.2-1.0); Blood Urea Nitrogen 53 MG/DL (7-18); Calcium 8.2 MG/DL (8.5-10.1); Estimated Glom Filtration Rate 93 ML/MIN; Glucose 259 MG/DL (74-106); Osmolality,Calculated 301.4 MOS/KG (273-304); Total Protein 5.9 G/DL (6.4-8.3)
[2020-04-30 05:59] LABS: Basophils % 0.1 % (0.0-0.8); Immature Granulocytes Absolute 0.15 #; Mean Corpuscular HGB Conc 28.7 GM/DL (32-36); Mean Corpuscular Volume 77.2 FL (87-102); Monocytes % 5.3 % (1.7-12.7); Neutrophils % 93.6 % (38.7-73.9); Platelet Count 125 T/CUMM (130-400); Red Blood Count 4.16 MC/CUMM (3.8-5.5); Red Cell Distribution Width 22.7 % (9.3-17.3)
[2020-04-30 06:03] LABS: Hemoglobin 9.2 GM/DL (14.0-18.0)
[2020-04-30 06:15] LABS: Anisocytosis 1+; Band Neutrophils 2 % (0-10); Segmented Neutrophils 94 % (50-85); Total Cells Counted 100
[2020-04-30 06:16] LABS: Ovalocytes 1+; Platelet Estimate Normal
[2020-04-30] MEDS: LEVOTHYROXINE 75 MCG TABLET PO SCH (07:17)
[2020-04-30] MEDS: DORNASE ALFA 2.5 MG/2.5 ML VIAL RESP TX SCH ×2 (07:26→19:17)
[2020-04-30] MEDS: FLUTICASONE 50 MCG NASAL SPRAY 16 GM BOTTLE BOTH NARES SCH ×2 (08:04→20:46)
[2020-04-30] MEDS: ISOSORBIDE MONONITRATE 60 MG TABLET PO SCH (08:30)
[2020-04-30] MEDS: guaiFENesin/DM ER 600-30 MG TABLET PO SCH ×2 (08:30→21:33)
[2020-04-30] MEDS: methylPREDNISolone SOD SUC 125 MG/2 ML VIAL IV SCH ×2 (08:31→21:43)
[2020-04-30] MEDS: LORATADINE 10 MG TABLET PO SCH (08:31)
[2020-04-30] MEDS: POLYETHYLENE GLYCOL POWDER 17 GM PACK PO SCH (08:31)
[2020-04-30] MEDS: FINASTERIDE 5 MG TABLET PO SCH (08:31)
[2020-04-30] MEDS: ENOXAPARIN 40 MG/0.4 ML SYRINGE SUBCUT SCH ×2 (08:31→20:43)
[2020-04-30] MEDS: PANTOPRAZOLE 40 MG VIAL IV SCH (08:31)
[2020-04-30] MEDS: TAMSULOSIN 0.4 MG CAPSULE PO SCH ×2 (08:31→21:34)
[2020-04-30] MEDS: FERROUS SULFATE 325 MG TABLET PO SCH ×3 (08:31→18:18)
[2020-04-30] MEDS: ACLIDINIUM BROMIDE INH SCH (10:13)
[2020-04-30] MEDS: LEVOFLOXACIN INJ 750 MG in PREMIX 1 EACH IV SCH (10:40)
[2020-04-30 13:30] LABS: ABG Oxygen Saturation 93.5 % (95-100); ABG PH 7.236 (7.35-7.45); ABG PO2 78.5 MM HG (80-95); ABG TCO2 30.4 MMOL/L (23-27)
[2020-04-30 13:32] LABS: ABG PCO2 76.4 MM HG (35-48)
[2020-04-30] MEDS: ROCURONIUM 500 MG in SODIUM CHLORIDE 0.9% 500 ML IV PRN (15:42)
[2020-04-30] MEDS: PHENYLEPHRINE DRIP 40 MG/250 ML PREMIX IV PRN ×2 (20:32→23:33)
[2020-04-30] MEDS: ROSUVASTATIN 20 MG TABLET PO SCH (21:34)
[2020-04-30] MEDS: FERROUS SULFATE 300 MG/5 ML UDCUP PO SCH (21:34)
[2020-05-01] MEDS ORDERED: SODIUM CHLORIDE 0.9% 1,000 ML IV ONE (00:50)
[2020-05-01 01:13] LABS: ABG Base Excess -0.6 MMOL/L (-2.5-2.5); ABG HCO3 23.7 MMOL/L (20-26); ABG Oxygen Saturation 85.4 % (95-100); ABG PO2 60.4 MM HG (80-95); ABG TCO2 29.1 MMOL/L (23-27); Allen Test Positive; Pt O2 Delivery Device Ventilator
[2020-05-01 01:16] LABS: ABG PCO2 87.4 MM HG (35-48); ABG PH 7.152 (7.35-7.45)
[2020-05-01] MEDS: ROCURONIUM 500 MG in SODIUM CHLORIDE 0.9% 500 ML IV PRN ×2 (01:38→07:59)
[2020-05-01] MEDS ORDERED: SODIUM BICARBONATE 50 MEQ/50 ML VIAL IV ONE ×3 (01:46→03:28)
[2020-05-01] MEDS ORDERED: ALBUTEROL/IPRATROPIUM 3 ML NEB RESP TX ONE (01:51)
[2020-05-01] MEDS: ALBUTEROL/IPRATROPIUM 3 ML NEB RESP TX SCH ×3 (03:06→11:18)
[2020-05-01] MEDS: fentaNYL INJ 1,250 MCG in SODIUM CHLORIDE 0.9% 225 ML IV PRN (03:26)
[2020-05-01] MEDS: dilTIAZem Drip 125 MG/125 ML PREMIX IV SCH (03:38)
[2020-05-01 04:07] LABS: ABG Base Excess 2.9 MMOL/L (-2.5-2.5); ABG HCO3 26.8 MMOL/L (20-26); ABG Oxygen Saturation 89.5 % (95-100); ABG PH 7.219 (7.35-7.45); ABG PO2 64.6 MM HG (80-95); ABG TCO2 30.8 MMOL/L (23-27)
[2020-05-01 04:09] LABS: ABG PCO2 80.1 MM HG (35-48)
[2020-05-01] MEDS: THEOPHYLLINE 5.33 MG/ML 30 ML/BOTTLE NG SCH ×2 (04:14→08:27)
[2020-05-01] MEDS: PHENYLEPHRINE DRIP 40 MG/250 ML PREMIX IV PRN ×3 (04:14→08:41)
[2020-05-01] MEDS ORDERED: NOREPINEPHRINE 8 MG in SODIUM CHLORIDE 0.9% 242 ML IV PRN (04:32)
[2020-05-01 04:34] LABS: Bilirubin,Total 1.4 MG/DL (0.2-1.0); Total Protein 5.8 G/DL (6.4-8.3)
[2020-05-01 04:44] LABS: Basophils # 0.1 10*3/uL (0.0-0.2); Basophils % 0.2 % (0.0-0.8); Hematocrit 32.5 VOL% (42.0-52.0); Hemoglobin 9.1 GM/DL (14.0-18.0); Immature Granulocytes % 0.7 %; Immature Granulocytes Absolute 0.16 #; Lymphocytes # 0.1 10*3/uL (1.4-4.0); Lymphocytes % 0.4 % (21.2-54.2); Neutrophils % 92.7 % (38.7-73.9); Platelet Count 153 T/CUMM (130-400); Red Blood Count 4.06 MC/CUMM (3.8-5.5); Red Cell Distribution Width 23.3 % (9.3-17.3); White Blood Count 24.6 T/CUMM (4-12)
[2020-05-01] MEDS ORDERED: FUROSEMIDE 40 MG/4 ML VIAL IV ONE (05:00)
[2020-05-01] MEDS ORDERED: FUROSEMIDE 40 MG/4 ML VIAL ONE (05:02)
[2020-05-01] MEDS: MIDAZOLAM 100 MG in SODIUM CHLORIDE 0.9% 80 ML IV PRN (05:11)
[2020-05-01] MEDS: INSULIN REGULAR 100 UNIT/ML SUBCUT SCH ×3 (05:22→13:44)
[2020-05-01 05:23] LABS: Band Neutrophils 1 % (0-10); Platelet Estimate Normal; Segmented Neutrophils 95 % (50-85); Total Cells Counted 100
[2020-05-01] MEDS ORDERED: MICAFUNGIN 150 MG in SODIUM CHLORIDE 0.9% 100 ML IV SCH (05:30)
[2020-05-01 06:01] LABS: Anisocytosis 2+
[2020-05-01 06:02] LABS: Hypochromasia 1+; Microcytosis 1+; Ovalocytes Slight; Polychromasia Slight
[2020-05-01 06:03] LABS: Schistocytes Slight
[2020-05-01] MEDS: LEVOTHYROXINE 75 MCG TABLET PO SCH (06:55)
[2020-05-01] MEDS: DORNASE ALFA 2.5 MG/2.5 ML VIAL RESP TX SCH (07:39)
[2020-05-01] MEDS: ISOSORBIDE MONONITRATE 60 MG TABLET PO SCH (08:26)
[2020-05-01] MEDS: FINASTERIDE 5 MG TABLET PO SCH (08:26)
[2020-05-01] MEDS: FLUTICASONE 50 MCG NASAL SPRAY 16 GM BOTTLE BOTH NARES SCH (08:26)
[2020-05-01] MEDS: guaiFENesin/DM ER 600-30 MG TABLET PO SCH (08:26)
[2020-05-01] MEDS: POLYETHYLENE GLYCOL POWDER 17 GM PACK PO SCH (08:26)
[2020-05-01] MEDS: TAMSULOSIN 0.4 MG CAPSULE PO SCH (08:27)
[2020-05-01] MEDS: ACLIDINIUM BROMIDE INH SCH (08:27)
[2020-05-01] MEDS: LORATADINE 10 MG TABLET PO SCH (08:27)
[2020-05-01] MEDS: FERROUS SULFATE 300 MG/5 ML UDCUP PO SCH (08:28)
[2020-05-01] MEDS: ENOXAPARIN 40 MG/0.4 ML SYRINGE SUBCUT SCH (09:07)
[2020-05-01] MEDS: PANTOPRAZOLE 40 MG VIAL IV SCH (09:08)
[2020-05-01] MEDS: methylPREDNISolone SOD SUC 125 MG/2 ML VIAL IV SCH (09:08)
[2020-05-01] MEDS: LEVOFLOXACIN INJ 750 MG in PREMIX 1 EACH IV SCH (13:43)
[2020-05-02] MEDS ORDERED: MICAFUNGIN 100 MG, MICAFUNGIN 50 MG in SODIUM CHLORIDE 0.9% 100 ML IV SCH (05:30)
== END 2020-05-01 09:05 | disposition expired | DRG 208 ==
LOC: N.ED 09:45 → SUATTDRO 13:47 → N.EDINP 13:47 → N.TELEN 14:53 → N.4E 04-25 14:08 → N.ICU 04-27 10:17
PROVIDERS: ADMIT Hospitalist; ATTEND Phlebology